=== PATIENT | female | born 1950 | race Caucasian/White ===

== ENCOUNTER 2019-09-16 15:28 | Emergency (ER) | payer MEDICARE, OTHER ==
[~2019-09-16] VITALS: Ht 152.4 cm; Wt 55.8 kg
[2019-09-16 15:35] VITALS: BP 145/81
== END 2019-09-16 16:19 | disposition home or self-care (01) ==
LOC: ER 15:32
DX: B34.9 Viral infection, unspecified (principal); E03.9 Hypothyroidism, unspecified

== ENCOUNTER 2022-06-09 11:00 | Outpatient (CLI) | payer MEDICARE, OTHER ==
[2022-06-09 12:19] LABS: BASOPHILS % (AUTO) 0.4 % (0.0-2.0); EOSINOPHILS % (AUTO) 0.2 % (0.0-6.0); HEMATOCRIT 41 % (33-45); HEMOGLOBIN 13.7 g/dL (11.5-14.8); LYMPHOCYTES # (AUTO) 1.9 K/uL (0.8-4.8); LYMPHOCYTES % (AUTO) 23.6 % (20.0-44.0); MEAN CORPUSCULAR HGB CONC 34 g/dl (31.0-36.0); MEAN CORPUSCULAR VOLUME 88 fL (82-100); MONOCYTES # (AUTO) 0.4 K/uL (0.1-1.30); MONOCYTES % (AUTO) 4.5 % (2.0-12.0); NEUTROPHILS # (AUTO) 5.8 K/uL (1.8-8.9); NEUTROPHILS % (AUTO) 71.3 % (43.0-81.0); PLATELET COUNT (AUTO) 278 K/uL (150-450); RED BLOOD CELL COUNT(AUTO) 4.63 MIL/uL (4.0-5.2); WHITE BLOOD COUNT (AUTO) 8.2 K/uL (4.3-11.0)
[2022-06-09 12:38] LABS: BILIRUBIN,URINE NEGATIVE (NEGATIVE); COLOR,URINE YELLOW (YELLOW); LEUKOCYTE ESTERASE ,URINE NEGATIVE (NEGATIVE); NITRITE, URINE NEGATIVE (NEGATIVE); PH,URINE 6.5 (5.0-8.0); PROTEIN,URINE NEGATIVE (NEGATIVE); UGLUCOSE NEGATIVE (NEGATIVE); UROBILINOGEN,URINE 0.2 EU/dL (0.2)
[2022-06-09 12:50] LABS: BACTERIA,URINE Rare /HPF (None Seen); RBC,URINE 0-2 /HPF (0-2); SQUAMOUS EPITHELIAL CELL,UR Few /HPF (None Seen); WBC,URINE 0-2 /HPF (0-3)
[2022-06-09 13:25] LABS: CREATININE, URINE 87.6 MG/DL (30.0-125.0); URINE TOTAL PROTEIN 9.4 mg/dL (0-11.9)
[2022-06-09 13:28] LABS: IRON, SERUM 92 ug/dl (50-175); TOTAL IRON BINDING CAPACITY 340 ug/dl (250-450)
[2022-06-09 13:54] LABS: CHOLESTEROL 220 mg/dL (<200); FERRITIN 78 ng/mL (8-388); FREE T4 (FREE THYROXINE) 1.39 ng/dL (0.76-1.46); HDL CHOLESTEROL 84 mg/dL (40-60); LDL 117 mg/dL (0-99); TRIGLYCERIDES 113 mg/dL (30-150)
[2022-06-09 14:05] LABS: ALANINE AMINOTRANSFERASE 28 U/L (12-78); ALBUMIN 3.7 g/dL (3.4-5.0); ALKALINE PHOSPHATASE 68 U/L (46-116); ASPARTATE AMINOTRANSFERASE 20 U/L (15-37); BILIRUBIN,TOTAL 0.5 mg/dL (0.2-1.0); CALCIUM, SERUM 9.2 mg/dL (8.5-10.1); CARBON DIOXIDE 24 mmol/L (21-32); CHLORIDE 105 mmol/L (98-107); CREATININE 0.7 mg/dL (0.6-1.3); GLUCOSE 133 mg/dL (74-106); PHOSPHORUS 4.5 mg/dL (2.5-4.9); POTASSIUM 4.1 mmol/L (3.5-5.1); SODIUM SERUM 139 mmol/L (136-145); TOTAL PROTEIN, SERUM 7.3 g/dL (6.4-8.2); UREA NITROGEN, BLOOD 18 mg/dL (7-18)
[2022-06-09 14:32] LABS: THYROID STIMULATING HORMONE < 0.007 uIU/mL (0.358-3.74)
[2022-06-09 14:36] LABS: C-REACTIVE PROTEIN < 0.3 mg/dL (0.0-0.9)
== END 2022-06-09 23:59 | disposition home or self-care (01) ==
LOC: MSC 11:00
PROVIDERS: ATTEND Internal Medicine
DX: R63.4 Abnormal weight loss (principal); Z68.1 Body mass index [BMI] 19.9 or less, adult; R07.89 Other chest pain; R13.10 Dysphagia, unspecified; E78.5 Hyperlipidemia, unspecified; R53.81 Other malaise; M54.12 Radiculopathy, cervical region; Z86.39 Personal history of other endocrine, nutritional and metabolic disease; Z86.11 Personal history of tuberculosis; Z86.69 Personal history of other diseases of the nervous system and sense organs; Z87.19 Personal history of other diseases of the digestive system; Z86.79 Personal history of other diseases of the circulatory system
CPT/HCPCS: 71046; 80061; 93005; 85025; 82570 ×2; 83540; 83735; 83036; 84100; 85652; 81001; 36415; 84439; 82746; 84443; 82607; 80053; 82728; 86140; 82306; 82043; 84155; G0463

== ENCOUNTER 2022-06-17 14:00 | Outpatient (CLI) | payer MEDICARE, OTHER | END 2022-06-17 23:59 | disposition home or self-care (01) | LOC: MSC 14:00 | PROVIDERS: ATTEND Internal Medicine | DX: E07.9 Disorder of thyroid, unspecified (principal); R63.4 Abnormal weight loss; R13.10 Dysphagia, unspecified; R07.89 Other chest pain; E78.5 Hyperlipidemia, unspecified; R53.81 Other malaise; Z87.39 Personal history of other diseases of the musculoskeletal system and connective tissue; Z86.39 Personal history of other endocrine, nutritional and metabolic disease; Z86.11 Personal history of tuberculosis; Z86.69 Personal history of other diseases of the nervous system and sense organs; Z87.19 Personal history of other diseases of the digestive system; Z86.79 Personal history of other diseases of the circulatory system ==

== ENCOUNTER 2022-07-15 11:09 | Outpatient (CLI) | payer MEDICARE, OTHER | END 2022-07-15 23:59 | disposition home or self-care (01) | LOC: US 11:09 | PROVIDERS: ATTEND Internal Medicine | DX: E04.1 Nontoxic single thyroid nodule (principal) | CPT/HCPCS: 76536-TC ==

== ENCOUNTER 2022-07-15 11:39 | Outpatient (CLI) | payer MEDICARE, OTHER ==
[2022-07-15 13:27] LABS: FREE T4 (FREE THYROXINE) 1.24 ng/dL (0.76-1.46); THYROID STIMULATING HORMONE < 0.007 uIU/mL (0.358-3.74)
[2022-07-16 08:07] LABS: THYROID PEROXIDASE (TPO) AB 13 IU/mL (0-34)
== END 2022-07-15 23:59 | disposition home or self-care (01) ==
LOC: LAB 11:39
PROVIDERS: ATTEND Internal Medicine
DX: E04.1 Nontoxic single thyroid nodule (principal); E11.9 Type 2 diabetes mellitus without complications; E78.5 Hyperlipidemia, unspecified; R13.10 Dysphagia, unspecified
CPT/HCPCS: 36415; 83520; 84439-TC; 84443-TC; 84481; 86376; 86800

== ENCOUNTER 2022-07-22 11:45 | Outpatient (CLI) | payer MEDICARE, OTHER | END 2022-07-22 23:59 | disposition home or self-care (01) | LOC: MSC 11:45 | PROVIDERS: ATTEND Internal Medicine | DX: E04.1 Nontoxic single thyroid nodule (principal); R63.4 Abnormal weight loss; R13.10 Dysphagia, unspecified; E78.5 Hyperlipidemia, unspecified; R07.89 Other chest pain; R53.81 Other malaise; Z86.11 Personal history of tuberculosis; Z87.39 Personal history of other diseases of the musculoskeletal system and connective tissue; Z86.69 Personal history of other diseases of the nervous system and sense organs; Z87.19 Personal history of other diseases of the digestive system; Z86.79 Personal history of other diseases of the circulatory system ==

== ENCOUNTER 2022-11-03 14:00 | Outpatient (CLI) | payer MEDICARE, OTHER | END 2022-11-03 23:59 | disposition home or self-care (01) | LOC: MSC 14:00 | PROVIDERS: ATTEND Internal Medicine | DX: N89.8 Other specified noninflammatory disorders of vagina (principal); E03.9 Hypothyroidism, unspecified; R63.4 Abnormal weight loss; R13.10 Dysphagia, unspecified; E78.5 Hyperlipidemia, unspecified; R07.89 Other chest pain; R53.81 Other malaise; Z86.11 Personal history of tuberculosis; Z87.39 Personal history of other diseases of the musculoskeletal system and connective tissue; Z86.69 Personal history of other diseases of the nervous system and sense organs; Z87.19 Personal history of other diseases of the digestive system; Z86.79 Personal history of other diseases of the circulatory system ==

== ENCOUNTER 2022-12-01 09:59 | Outpatient (CLI) | payer MEDICARE, OTHER ==
[2022-12-01 12:00] LABS: BASOPHILS # (AUTO) 0.1 K/uL (0.0-0.2); BASOPHILS % (AUTO) 0.6 % (0.0-2.0); EOSINOPHILS % (AUTO) 0.5 % (0.0-6.0); HEMATOCRIT 42 % (33-45); HEMOGLOBIN 13.7 g/dL (11.5-14.8); LYMPHOCYTES # (AUTO) 2.4 K/uL (0.8-4.8); LYMPHOCYTES % (AUTO) 28.8 % (20.0-44.0); MEAN CORPUSCULAR HGB CONC 33 g/dl (31.0-36.0); MEAN CORPUSCULAR VOLUME 91 fL (82-100); MONOCYTES # (AUTO) 0.4 K/uL (0.1-1.30); MONOCYTES % (AUTO) 4.5 % (2.0-12.0); NEUTROPHILS # (AUTO) 5.5 K/uL (1.8-8.9); NEUTROPHILS % (AUTO) 65.6 % (43.0-81.0); PLATELET COUNT (AUTO) 266 K/uL (150-450); RED BLOOD CELL COUNT(AUTO) 4.56 MIL/uL (4.0-5.2); WHITE BLOOD COUNT (AUTO) 8.4 K/uL (4.3-11.0)
[2022-12-01 12:27] LABS: IRON, SERUM 109 ug/dl (50-175); TOTAL IRON BINDING CAPACITY 365 ug/dl (250-450)
[2022-12-01 12:41] LABS: CHOLESTEROL 227 mg/dL (<200); FERRITIN 45 ng/mL (8-388); HDL CHOLESTEROL 91 mg/dL (40-60); THYROID STIMULATING HORMONE < 0.007 uIU/mL (0.358-3.74); TRIGLYCERIDES 110 mg/dL (30-150)
[2022-12-01 12:53] LABS: ALANINE AMINOTRANSFERASE 39 U/L (12-78); ALBUMIN 3.9 g/dL (3.4-5.0); ALKALINE PHOSPHATASE 80 U/L (46-116); ASPARTATE AMINOTRANSFERASE 19 U/L (15-37); BILIRUBIN,TOTAL 0.4 mg/dL (0.2-1.0); CALCIUM, SERUM 9.5 mg/dL (8.5-10.1); CARBON DIOXIDE 27 mmol/L (21-32); CHLORIDE 107 mmol/L (98-107); CREATININE 0.5 mg/dL (0.6-1.3); MAGNESIUM 2.1 mg/dL (1.8-2.4); PHOSPHORUS 4.2 mg/dL (2.5-4.9); POTASSIUM 4.2 mmol/L (3.5-5.1); SODIUM SERUM 142 mmol/L (136-145); TOTAL PROTEIN, SERUM 7.6 g/dL (6.4-8.2); UREA NITROGEN, BLOOD 17 mg/dL (7-18)
[2022-12-01 13:26] LABS: LDL 126 mg/dL (0-99)
[2022-12-01 15:30] LABS: C-REACTIVE PROTEIN < 0.2 mg/dL (0.0-0.9)
[2022-12-01 15:44] LABS: GLUCOSE 107 mg/dL (74-106)
== END 2022-12-01 23:59 | disposition home or self-care (01) ==
LOC: MSC 09:59
PROVIDERS: ATTEND Internal Medicine
DX: R07.81 Pleurodynia (principal); R22.0 Localized swelling, mass and lump, head; R10.9 Unspecified abdominal pain; F41.8 Other specified anxiety disorders; I10 Essential (primary) hypertension; E03.9 Hypothyroidism, unspecified; R63.4 Abnormal weight loss; R13.10 Dysphagia, unspecified; E78.5 Hyperlipidemia, unspecified; R07.89 Other chest pain; R53.81 Other malaise; Z86.11 Personal history of tuberculosis; Z87.39 Personal history of other diseases of the musculoskeletal system and connective tissue; Z86.69 Personal history of other diseases of the nervous system and sense organs; Z87.19 Personal history of other diseases of the digestive system; Z86.79 Personal history of other diseases of the circulatory system; Z79.899 Other long term (current) drug therapy
CPT/HCPCS: 71046; 80061; 71111; 85025; 83540; 83735; 83036; 84100; 85652; 36415; 84439; 82746; 84443; 82607; 80053; 82728; 86140; 82306; G0463

== ENCOUNTER 2022-12-06 09:23 | Outpatient (CLI) | payer MEDICARE, OTHER | END 2022-12-06 23:59 | disposition home or self-care (01) | LOC: CT 09:23 | PROVIDERS: ATTEND Internal Medicine | DX: I67.82 Cerebral ischemia (principal); I25.10 Atherosclerotic heart disease of native coronary artery without angina pectoris; M51.36 Other intervertebral disc degeneration, lumbar region; K57.30 Diverticulosis of large intestine without perforation or abscess without bleeding; R51.9 Headache, unspecified; R10.9 Unspecified abdominal pain | CPT/HCPCS: 70450-TC; 74150-TC ==

== ENCOUNTER 2022-12-08 11:06 | Outpatient (CLI) | payer MEDICARE, OTHER ==
[2022-12-08 13:11] LABS: AMYLASE 75 U/L (25-115); LIPASE 173 U/L (73-393)
== END 2022-12-08 23:59 | disposition home or self-care (01) ==
LOC: MSC 11:06
PROVIDERS: ATTEND Internal Medicine
DX: R13.10 Dysphagia, unspecified (principal); R10.9 Unspecified abdominal pain; K86.89 Other specified diseases of pancreas; R63.4 Abnormal weight loss; Z68.1 Body mass index [BMI] 19.9 or less, adult; R07.89 Other chest pain; R07.81 Pleurodynia; R51.9 Headache, unspecified; R22.0 Localized swelling, mass and lump, head; F41.8 Other specified anxiety disorders; I10 Essential (primary) hypertension; E78.5 Hyperlipidemia, unspecified; R53.81 Other malaise; Z86.11 Personal history of tuberculosis
CPT/HCPCS: 82150; 83690; 36415; G0463

== ENCOUNTER 2023-05-04 11:12 | Day surgery (SDC) | payer MEDICARE, OTHER ==
[~2023-05-04] VITALS: Ht 157.5 cm; Wt 47.6 kg
[2023-05-04 13:53] LABS: CALCIUM, SERUM 9.5 mg/dL (8.5-10.1); CARBON DIOXIDE 26 mmol/L (21-32); CHLORIDE 103 mmol/L (98-107); CREATININE 0.7 mg/dL (0.6-1.3); GLUCOSE 90 mg/dL (74-106); POTASSIUM 3.7 mmol/L (3.5-5.1); SODIUM SERUM 139 mmol/L (136-145); UREA NITROGEN, BLOOD 19 mg/dL (7-18)
[2023-05-04] MEDS ORDERED: IOHEXOL-350 100 ML VIAL IV ONE (14:05)
[2023-05-04] MEDS ORDERED: CT SWABBABLE VALVE TRANS SET 1 EA INFUS.SET MC ONE (14:05)
[2023-05-04] MEDS ORDERED: IV NS 0.9% 250 ML IV ONE (14:05)
[2023-05-04] MEDS ORDERED: METOPROLOL TARTRATE INJ 5 MG/5 ML AMPUL ONE (14:20)
[2023-05-04] MEDS ORDERED: NITROGLYCERIN 0.4 MG/TAB BOTTLE ONE (14:21)
[2023-05-04] MEDS ORDERED: METOPROLOL TARTRATE INJ 5 MG/5 ML AMPUL IVP PRN (15:00)
[2023-05-04] MEDS ORDERED: NITROGLYCERIN 0.4 MG/TAB BOTTLE SL ONE (15:00)
[2023-05-04 15:02] VITALS: BP 119/60
== END 2023-05-04 15:14 | disposition home or self-care (01) ==
LOC: CT 11:12
PROVIDERS: ATTEND Internal Medicine Interventional Cardiology
DX: R07.89 Other chest pain (principal)
CPT/HCPCS: 75574; 80048; 36415; J3490; J7050; Q9967

== ENCOUNTER 2023-11-28 13:19 | Outpatient (CLI) | payer MEDICARE, OTHER | END 2023-11-28 23:59 | disposition home or self-care (01) | LOC: MSC 13:19 | PROVIDERS: ATTEND Anesthesiology | DX: G89.4 Chronic pain syndrome (principal); M54.50 Low back pain, unspecified; M79.7 Fibromyalgia; M62.830 Muscle spasm of back; Z79.899 Other long term (current) drug therapy ==

== ENCOUNTER 2024-03-07 09:51 | Outpatient (CLI) | payer MEDICARE, OTHER ==
[2024-03-07] MEDS ORDERED: NEOM28.43 TP (12:51)
== END 2024-03-07 23:59 | disposition home or self-care (01) ==
LOC: MSC 09:51
PROVIDERS: ATTEND Internal Medicine
DX: T23.201A Burn of second degree of right hand, unspecified site, initial encounter (principal); X12.XXXA Contact with other hot fluids, initial encounter; Y93.G3 Activity, cooking and baking; Y92.9 Unspecified place or not applicable; R51.9 Headache, unspecified; R42 Dizziness and giddiness; R13.10 Dysphagia, unspecified; Z86.73 Personal history of transient ischemic attack (TIA), and cerebral infarction without residual deficits; R11.2 Nausea with vomiting, unspecified; M19.90 Unspecified osteoarthritis, unspecified site; K02.9 Dental caries, unspecified; E05.90 Thyrotoxicosis, unspecified without thyrotoxic crisis or storm; R63.4 Abnormal weight loss; M85.80 Other specified disorders of bone density and structure, unspecified site; E78.5 Hyperlipidemia, unspecified; R10.9 Unspecified abdominal pain; I95.9 Hypotension, unspecified; R53.81 Other malaise; M54.50 Low back pain, unspecified; M54.12 Radiculopathy, cervical region

== ENCOUNTER 2024-03-07 12:07 | Emergency (ER) | payer MEDICARE, OTHER ==
[~2024-03-07] VITALS: Ht 154.9 cm; Wt 59.0 kg
[2024-03-07] MEDS ORDERED: NEOM28.43 TP (12:51)
[2024-03-07] MEDS: NEOMY SULF/BACITRAC ZN/POLY 15 GM TUBE TP STA (13:04)
[2024-03-07] MEDS ORDERED: TDAP [DIPH/PERTUSSIS/TET] 0.5 ML VIAL IM ONE (13:06)
[2024-03-07] MEDS: TDAP [DIPH/PERTUSSIS/TET] 0.5 ML VIAL IM ONE (13:08)
[2024-03-07 13:15] VITALS: BP 134/70; TEMP 208.6; O2SAT 98
== END 2024-03-07 13:16 | disposition home or self-care (01) ==
LOC: ER 12:13
DX: T23.201A Burn of second degree of right hand, unspecified site, initial encounter (principal); T31.0 Burns involving less than 10% of body surface; E03.9 Hypothyroidism, unspecified; Z87.09 Personal history of other diseases of the respiratory system; X11.8XXA Contact with other hot tap-water, initial encounter; Y93.89 Activity, other specified; Y92.89 Other specified places as the place of occurrence of the external cause; Y99.8 Other external cause status
CPT/HCPCS: 90715